=== PATIENT | female | born 1990 | race Caucasian/White ===

== ENCOUNTER 2020-11-06 21:05 | Emergency (ER) | payer OTHER ==
[~2020-11-06] VITALS: Ht 154.9 cm; Wt 53.5 kg
[~2020-11-06 21:05] MED LIST: Cleocin HCl300 MG PO; Cyclobenzaprine5 MG PO; IBUP800 PO; [UNRECOGNIZED DRUG - REMARK] PO
[2020-11-06 21:36] LABS: Source, Urine Clean Catch
[2020-11-06 21:47] LABS: BASOPHILS ABSOLUTE AUTO 0.02 K/mm3 (0.00-0.23); BASOPHILS PERCENT AUTO 0 % (0-2); EOSINOPHILS PERCENT AUTO 3 % (0-6); Hematocrit 40.3 % (33.0-51.0); Hemoglobin 12.7 g/dL (11.5-16.0); IMMATURE GRAN ABSOLUTE AUTO 0.02 K/mm3 (0.00-0.10); IMMATURE GRAN PERCENT AUTO 0 % (0-1); LYMPHOCYTES ABSOLUTE AUTO 2.98 K/mm3 (0.84-5.20); LYMPHOCYTES PERCENT AUTO 38 % (21-46); MONOCYTES ABSOLUTE AUTO 0.85 K/mm3 (0.16-1.47); MONOCYTES PERCENT AUTO 11 % (4-13); Mean Corpuscular HGB 31.8 pg (26.0-34.0); Mean Corpuscular HGB Conc 31.5 g/dL (31.5-36.5); Mean Corpuscular Volume 101 fL (80-100); Mean Platelet Volume 9.5 fL (9.1-12.4); NEUTROPHILS ABSOLUTE AUTO 3.79 K/mm3 (1.96-9.15); NEUTROPHILS PERCENT AUTO 48 % (41-73); Platelet Count 298 K/mm3 (150-400); RDW Coefficient Variation 14.1 % (11.7-14.2); RDW Standard Deviation 53.7 fL (35.1-46.3); Red Blood Cell Count 3.99 M/mm3 (3.80-5.20); White Blood Cell Count 7.86 K/mm3 (4.00-11.30)
[2020-11-06 21:47] LABS: Appearance, Urine Hazy (Clear); Bacteria Mod /hpf; Bilirubin, Urine Neg (Neg); Blood, Urine 2+ (Neg); Calcium Oxalate Crystals Few /hpf; Color, Urine Yellow (P-Yellow); Glucose Qualitative, Urine Neg (Neg); Ketones, Urine Neg (Neg); Leukocyte Esterase, Urine 2+ (Neg); Mucus Light (0-Heavy); Nitrite, Urine Neg (Neg); Protein, Urine 1+ (Neg); Specific Gravity, Urine 1.025 (1.003-1.022); Squamous Epithelial Cells Mod /hpf (Few); Urobilinogen, Urine NORM (Normal)
[2020-11-06 21:52] LABS: U Amphetamine Screen Not Detected; U Barbituate Screen Not Detected; U Benzodiazapine Screen Not Detected; U Buprenorphine Screen Not Detected; U Cannabinoids Screen DETECTED; U Cocaine Screen Not Detected; U Methadone Screen Not Detected; U Methamphetamine Screen DETECTED; U Opiates Screen Not Detected; U Oxycodone Screen Not Detected; U Phencyclidine Screen Not Detected; U Propoxyphene Screen Not Detected
[2020-11-06 22:06] LABS: Alanine Aminotransfer (ALT/SGP 23 U/L (12-78); Albumin, Blood 3.7 g/dL (3.4-5.0); Alk Phos 61 U/L (50-136); Anion Gap 5 mmol/L (6-16); Aspartate Aminotrans (AST/SGOT 19 U/L (12-37); Bilirubin, Total 0.2 mg/dL (0.1-1.0); Blood Urea Nitrogen 11 mg/dL (8-24); Bun/Creatinine Ratio 17.6 (12.0-20.0); CO2, Blood 23 mmol/L (21-32); Calcium, Blood 8.6 mg/dL (8.5-10.1); Chloride, Blood 110 mmol/L (98-108); Creatinine, Blood 0.62 mg/dL (0.40-1.00); Globulin, Blood 3.7 g/dL (2.2-4.0); Glomerular Filtration Rate >60 (60-); Glucose, Blood 93 mg/dL (70-99); Potassium, Blood 3.9 mmol/L (3.5-5.5); Sodium, Blood 138 mmol/L (136-145); Total Protein, Blood 7.4 g/dL (6.4-8.2)
[2020-11-06] MEDS ORDERED: Vibramycin100 MG PO (23:14)
[2020-11-06] MEDS ORDERED: Flagyl500 MG PO (23:14)
== END 2020-11-07 00:40 | disposition home or self-care (01) ==
LOC: ER 21:05
PROVIDERS: Emergency Medicine
DX: N83.201 Unspecified ovarian cyst, right side (principal); R91.1 Solitary pulmonary nodule; F15.10 Other stimulant abuse, uncomplicated; F17.200 Nicotine dependence, unspecified, uncomplicated; Z88.0 Allergy status to penicillin
CPT/HCPCS: 74177; 76857; 80053; 81001; 81025; 85025; 87086; 96365-59; 99284-25; A9270-GY; J0696; Q9967

== ENCOUNTER 2020-12-03 19:25 | Emergency (ER) | payer OTHER ==
[~2020-12-03] VITALS: Ht 154.9 cm; Wt 54.4 kg
[~2020-12-03 19:25] MED LIST changes: +Flagyl500 MG PO; +Vibramycin100 MG PO
[2020-12-03 20:26] LABS: BASOPHILS ABSOLUTE AUTO 0.02 K/mm3 (0.00-0.23); BASOPHILS PERCENT AUTO 0 % (0-2); EOSINOPHILS ABSOLUTE AUTO 0.18 K/mm3 (0.00-0.68); EOSINOPHILS PERCENT AUTO 3 % (0-6); Hemoglobin 12.3 g/dL (11.5-16.0); IMMATURE GRAN ABSOLUTE AUTO 0.01 K/mm3 (0.00-0.10); IMMATURE GRAN PERCENT AUTO 0 % (0-1); LYMPHOCYTES ABSOLUTE AUTO 2.85 K/mm3 (0.84-5.20); LYMPHOCYTES PERCENT AUTO 42 % (21-46); MONOCYTES ABSOLUTE AUTO 0.59 K/mm3 (0.16-1.47); MONOCYTES PERCENT AUTO 9 % (4-13); Mean Corpuscular HGB 32.8 pg (26.0-34.0); Mean Corpuscular HGB Conc 33.2 g/dL (31.5-36.5); Mean Corpuscular Volume 99 fL (80-100); Mean Platelet Volume 10.9 fL (9.1-12.4); NEUTROPHILS ABSOLUTE AUTO 3.09 K/mm3 (1.96-9.15); NEUTROPHILS PERCENT AUTO 46 % (41-73); Platelet Count 164 K/mm3 (150-400); RDW Coefficient Variation 13.2 % (11.7-14.2); RDW Standard Deviation 47.8 fL (35.1-46.3); Red Blood Cell Count 3.75 M/mm3 (3.80-5.20); White Blood Cell Count 6.74 K/mm3 (4.00-11.30)
[2020-12-03 20:44] LABS: C-REACTIVE PROTEIN, EXT RANGE <0.290 mg/dL (0.000-0.300)
[2020-12-03 20:46] LABS: Alanine Aminotransfer (ALT/SGP 22 U/L (12-78); Albumin, Blood 3.4 g/dL (3.4-5.0); Albumin/Globulin Ratio 1.1 (0.8-1.8); Alk Phos 56 U/L (50-136); Anion Gap 3 mmol/L (6-16); Aspartate Aminotrans (AST/SGOT 18 U/L (12-37); Bilirubin, Total 0.2 mg/dL (0.1-1.0); Blood Urea Nitrogen 13 mg/dL (8-24); Bun/Creatinine Ratio 18.9 (12.0-20.0); CO2, Blood 28 mmol/L (21-32); Calcium, Blood 8.5 mg/dL (8.5-10.1); Chloride, Blood 110 mmol/L (98-108); Creatinine, Blood 0.69 mg/dL (0.40-1.00); Globulin, Blood 3.2 g/dL (2.2-4.0); Glomerular Filtration Rate >60 (60-); Glucose, Blood 124 mg/dL (70-99); Potassium, Blood 3.7 mmol/L (3.5-5.5); Sodium, Blood 141 mmol/L (136-145); Total Protein, Blood 6.6 g/dL (6.4-8.2)
[2020-12-03 21:12] LABS: Source, Urine Clean Catch
[2020-12-03 21:18] LABS: Appearance, Urine Hazy (Clear); Bilirubin, Urine Neg (Neg); Blood, Urine 2+ (Neg); Color, Urine Yellow (P-Yellow); Glucose Qualitative, Urine Neg (Neg); Ketones, Urine 1+ (Neg); Leukocyte Esterase, Urine 1+ (Neg); Nitrite, Urine Neg (Neg); Protein, Urine Neg (Neg); Specific Gravity, Urine 1.025 (1.003-1.022); Urobilinogen, Urine 1+ (Normal)
[2020-12-03 21:23] LABS: Bacteria Many /hpf; Mucus Light (0-Heavy); Squamous Epithelial Cells Many /hpf (Few)
[2020-12-03] MEDS ORDERED: Vibramycin100 MG PO (21:59)
[2020-12-06 05:09] LABS: CHLAMYDIA TRACHOMATIS, NAA Negative (Negative)
== END 2020-12-03 22:46 | disposition home or self-care (01) ==
LOC: ER 19:25
PROVIDERS: Emergency Medicine
DX: N70.93 Salpingitis and oophoritis, unspecified (principal); F17.200 Nicotine dependence, unspecified, uncomplicated; Z88.0 Allergy status to penicillin; Z79.899 Other long term (current) drug therapy
CPT/HCPCS: 36415; 76857; 80053; 81001; 81025; 85025; 86140; 87086; 87491; 87591; 96365; 96367; 99284-25; J0694

== ENCOUNTER 2021-06-06 09:56 | Emergency (ER) | payer OTHER ==
[~2021-06-06] VITALS: Ht 154.9 cm; Wt 53.5 kg
== END 2021-06-06 10:41 | disposition left against medical advice (07) ==
LOC: ER 09:56
DX: M79.641 Pain in right hand (principal); Z53.21 Procedure and treatment not carried out due to patient leaving prior to being seen by health care provider
CPT/HCPCS: 99282

== ENCOUNTER 2021-06-06 15:28 | Emergency (ER) | payer OTHER ==
[~2021-06-06] VITALS: Ht 154.9 cm; Wt 53.5 kg
== END 2021-06-06 16:46 | disposition left against medical advice (07) ==
LOC: ER 15:28
DX: R23.8 Other skin changes (principal); Z53.21 Procedure and treatment not carried out due to patient leaving prior to being seen by health care provider
CPT/HCPCS: 99282

== ENCOUNTER 2021-06-06 22:30 | Emergency (ER) | payer OTHER ==
[~2021-06-06] VITALS: Ht 154.9 cm; Wt 53.5 kg
== END 2021-06-07 00:22 | disposition left against medical advice (07) ==
LOC: ER 22:30
DX: L03.113 Cellulitis of right upper limb (principal); Z53.21 Procedure and treatment not carried out due to patient leaving prior to being seen by health care provider
CPT/HCPCS: 73130; 99282-25

== ENCOUNTER 2021-06-07 01:41 | Emergency (ER) | payer OTHER ==
[~2021-06-07] VITALS: Ht 154.9 cm; Wt 53.5 kg
== END 2021-06-07 04:41 | disposition home or self-care (01) ==
LOC: ER 01:41
DX: L03.113 Cellulitis of right upper limb (principal); Z88.0 Allergy status to penicillin; F17.210 Nicotine dependence, cigarettes, uncomplicated
CPT/HCPCS: 99283

== ENCOUNTER 2025-07-11 09:03 | Day surgery (SDC) | payer OTHER ==
[~2025-07-11] VITALS: Ht 154.9 cm; Wt 49.6 kg
--- NOTE | 2025-07-11 10:32 | NUR ---
07/11/25 1032 Felicia Moreno 1030: 1000 MG TYLENOL PO X1 GIVEN PER DR GABRIEL MUNOZ
[2025-07-11] MEDS ORDERED: FentaNYL Citrate 50 MCG/ML 2 ML Injection ONE (10:39)
[2025-07-11] MEDS ORDERED: Ondansetron HCl 2 MG / ML 2ML Vial ONE (10:40)
[2025-07-11] MEDS ORDERED: Dexamethasone Sod Phos 10 MG/ML 1ML VIAL ONE (10:40)
[2025-07-11] MEDS ORDERED: Sugammadex Sodium 200 MG/2ML SDV (100 MG/ML) ONE (10:40)
[2025-07-11] MEDS ORDERED: Rocuronium Bromide 10 MG/ML 5ML Injection IV ONE (10:40)
[2025-07-11] MEDS ORDERED: Ketorolac Tromethamine 30mg Vial ONE (10:40)
--- NOTE | 2025-07-11 11:05 | NUR ---
07/11/25 1105 Lyubov Alves ABDOMINAL AREA PREPPED WITH CHLORAPREP BY ODX.
[2025-07-11] MEDS ORDERED: Bupivacaine 0.5% W/EPI 1:200000 SDV 30 ML Vial INJ ONE (11:08)
--- NOTE | 2025-07-11 12:19 | NUR ---
07/11/25 1219 Millie Rosales PT TO PACU, SNORING AUDIBLY BUT SATS STABLE. UNABLE TO AWAKEN WITH CHIN LIFT FOR 15 MINS, THEN MAINTAINING SAT WITH LATERAL HEAD TURN. 1218 - CONTINUES TO BE VERY SLEEPY, UNABLE TO MAINTAIN CONVERSATION DSG: ABDOMINAL BANDAIDS CDI BETHANIE PAD SMALL AMT SANG DRAINAGE
[2025-07-11 12:51] VITALS: BP 101/63
--- NOTE | 2025-07-11 13:12 | NUR ---
07/11/25 1312 So Brannon PT STATED SHE WAS A 3/10 PAIN IN ABD AT D/C PT DENIED SOB, DIZZIENESS. PT ABLE TO TRANSFER ON HER OWN FROM RECLINER TO WHEEL CHAIR W/O DIFFICULTY.
== END 2025-07-11 13:09 | disposition home or self-care (01) ==
LOC: ORSCSDS 09:03
PROVIDERS: Obstetrics & Gynecology
PROC: 0UB98ZZ Excision of Uterus, Via Natural or Artificial Opening Endoscopic (ICD-10-PCS; principal; 2025-07-11 10:30)
PROC: 0UB64ZX Excision of Left Fallopian Tube, Percutaneous Endoscopic Approach, Diagnostic (ICD-10-PCS; principal; 2025-07-11 10:30)
PROC: 0UB54ZX Excision of Right Fallopian Tube, Percutaneous Endoscopic Approach, Diagnostic (ICD-10-PCS; principal; 2025-07-11 10:30)
DX: Q50.5 Embryonic cyst of broad ligament (principal); N84.0 Polyp of corpus uteri; N70.11 Chronic salpingitis; N73.6 Female pelvic peritoneal adhesions (postinfective); F17.210 Nicotine dependence, cigarettes, uncomplicated; F41.9 Anxiety disorder, unspecified; F32.A Depression, unspecified
CPT/HCPCS: 88305; A9270; J1100; J1885; J2405; J2704; J3010; J7120